=== PATIENT | female | born 1960 | race Caucasian/White ===

== ENCOUNTER 2022-08-12 21:34 | Emergency (ER) | payer OTHER ==
[2022-08-12] MEDS ORDERED: LORazepam 2 MG/ML VIAL ONE (22:06)
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
[2022-08-12 23:52] VITALS: TEMP 98
[2022-08-12 23:54] VITALS: BP 94/54; O2SAT 97
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
== END 2022-08-12 23:45 | disposition home or self-care (01) ==
LOC: ER 21:34
DX: M54.50 Low back pain, unspecified (principal); Y09 Assault by unspecified means
CPT/HCPCS: 70450; 72125; 72128; 72131

== ENCOUNTER 2024-06-22 22:10 | Emergency (ER) | payer MEDICAID, OTHER ==
--- OUTSIDE RECORDS SUMMARY | 2024-06-22 22:13 | XMS REPORT | Clinical Summary ---
Author Name Unknown Organization [facility] Address [address] [place] [address] Care Team Providers Care Dietary Clerk Name Role Phone Maria Elena Beasley NP, Kimberly Primary Care Provider [phone] Allergies No known active allergies Medications ibuprofen 200 mg cap Take 200 capsules by mouth daily. Active omeprazole (PriLOSEC) 20 mg capsule Take 1 capsule by mouth daily. Active simvastatin (ZOCOR) 40 mg tablet Take 40 mg by mouth daily. Active vitamin B complex capsule Take 1 capsule by mouth daily. Active ESTRADIOL ORAL Take 0.5 g by mouth daily. Active Active Problems Problem Noted Date Diagnosed Date Mastodynia of left breast 08/13/2020 Surgical History Surgery Date Site/Laterality Comments COLONOSCOPY 06/14/2014 - 06/13/2015 TOTAL ABDOMINAL HYSTERECTOMY CHOLECYSTECTOMY TONSILLECTOMY HAND SURGERY as a kid BREAST BIOPSY 06/14/2012 - 06/13/2013 Left Medical History Medical History Date Comments Hyperlipidemia 2011 Neuropathy 2009 Allergic rhinitis Child Diverticulitis 2003 Urinary incontinence 2014 Menopause 2014 Abnormal uterine bleeding unrelated to menstrual cycle 1986 Blood transfusion, without reported diagnosis 19 80 Depressive disorder 1976 Anxiety Child Suicide attempt 1996 Basal cell carcinoma of skin 2011 Mastodynia of left breast 08/13/2020 Family History Medical History Relation Name Comments Cervical cancer Daughter Dina Colon cancer Father Az Breast cancer Maternal Grandmother Rose Breast cancer Mother Mai Liver cancer Mother Mai Relation Name Status Comments Daughter Dina Father Az Maternal Grandmother Rose Mother Mai Social History Tobacco Use Types Packs/Day Years Used Date Smoking Tobacco: Former Cigarettes Smokeless Tobacco: Never Alcohol Use Standard Drinks/Week Comments Not Currently 0 (1 standard drink = 0.6 oz pur e alcohol) Comments No Sex and Gender Information Value Date Recorded Sex Assigned at Female 07/19/2020 8:40 AM 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 Legal Sex Female 5:59 AM 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 Gender Identity Female 07/19/2020 8:40 AM 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 Sexual Orientation Straight 07/19/2020 8: 40 AM 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 Obstetrics History Para Term AB IAB SAB Ectopic Multiple Livin g Live Births 4 4 Date Outcome GA Total Labor Labor/2nd/3rd Weight Sex Type Anes PTL Aneta A1 A5 Name Clin Para Para Para Para Comments Menarche: 11 Parity: 17 OBC: used for 15 years Hormonal Therapy: estradiol Last Pap: 1996 (OS) Abnormal Pap: none Last Eric: 07-15-2020 (OS) Last Colon: 2014 Breast Bx: (L) breast; 2012; benign Plan of Treatment Health Maintenance Due Date Last Done Comments COVID-19 Vaccine (2023-2 5 season) 2024 Influenza Vaccine (#1) 2024 Pneumococcal Vaccine: Pediat rics (0 to 5 Years) and At-Risk Patients (6 to 64 Years) Aged Out No longer eligi ble based on patient's age to complete this topic Insurance MEDICARE PART A AND B MEDICARE PART A AND B Care Teams Dietary Clerk Relationship Specialty Start Date End Date Kimberly Arredondo NP [address] [place] [address] [email or web address] PCP - General Cancer Prevention 08/06/20
[2024-06-22] MEDS ORDERED: ONDANSETRON 4 MG/2 ML VIAL ONE (22:36)
[2024-06-22] MEDS ORDERED: DICYCLOMINE HCL 20 MG/2 ML AMP IM ONE (22:36)
[2024-06-22] MEDS ORDERED: FAMOTIDINE 20 MG/2 ML VIAL IV ONE (22:38)
[2024-06-22] MEDS ORDERED: NA CHLORIDE 0.9% 1,000 ML ONE (22:38)
[2024-06-22] MEDS ORDERED: FENTANYL CITR 100 MCG/2 ML ONE (22:38)
[2024-06-22 22:50] LABS: Absolute Basophils 0.1 K/uL (0-0.5); Absolute Eosinophils 0.2 K/uL (0-0.5); Absolute Lymphocytes (CBC) 1.8 K/uL (0.7-4.9); Absolute Monocytes 0.7 K/uL (0.1-1.3); Absolute Neutrophil 3.9 K/uL (1.8-8.0); Basophils % 0.9 % (0-1.3); Eosinophils % 3.4 % (0-4.4); Hematocrit 30.3 % (36.0-45.0); Hemoglobin 10.4 g/dL (12.0-15.0); Lymphocytes % 27.7 % (15.3-44.8); MCH 32.9 pg (27.0-35.0); MCHC 34.3 g/dL (32.0-36.0); MCV 96.1 fL (80-100); MPV 9.4 fL (7.6-11.3); Platelets 174 thou/uL (152-406); RBC Red Blood Cell Count 3.15 M/uL (3.86-4.86); Red Cell Distribution Width 12.6 % (12.1-15.2)
[2024-06-22 23:03] LABS: ALT/SGPT 18 U/L (13-56); AST/SGOT 15 U/L (15-37); Albumin 2.8 g/dL (3.4-5.0); Albumin/Globulin Ratio 0.9 (1.1-1.8); Alkaline Phosphatase 42 U/L (45-117); Anion Gap 6.8 mEq/L (5.0-15.0); BUN Blood Urea Nitrogen 27 mg/dL (7-18); Bicarbonate 25 mEq/L (21-32); Bilirubin Total 0.2 mg/dL (0.2-1.0); Glomerular Filtration Rate 54 ml/min (=/>90); Glucose Level 92 mg/dL (74-106); Lipase 45 U/L (13-75); Potassium 3.8 mEq/L (3.5-5.1); Protein, Total 5.8 g/dL (6.4-8.2); Sodium Level 141 mEq/L (136-145)
[2024-06-22 23:32] LABS: C-Reactive Protein < 2.90 mg/L (<3.00)
[2024-06-23] MEDS ORDERED: TAMSULOSIN 0.4 MG SR CAP ONE (00:27)
[2024-06-23] MEDS ORDERED: NA CHLORIDE 0.9% 1,000 ML ONE (00:28)
[2024-06-23] MEDS ORDERED: FENTANYL CITR 100 MCG/2 ML ONE (00:28)
--- NOTE | 2024-06-23 01:33 | RAD REPORT ---
EXAM DESCRIPTION: Abdomen Pelvis W Contrast RadLex: CT ABDOMEN PELVIS WITH IV CONTRAST CLINICAL HISTORY: 64 years Female; ABD PAIN; IV ONLY Bed Name: 15 TECHNIQUE: CT of the abdomen and pelvis [with] intravenous contrast. All CT scans at this facility use dose modulation, iterative reconstruction, and/or weight based dosi ng when appropriate to reduce radiation dose to as low as reasonably achievable. COMPARISON: None. FINDINGS: Lower thorax: Bibasilar atelectasis. Abdomen: Stomach: Within normal limits Liver: No focal lesions. Enlarged. No intrahepatic ductal distention. Gallbladder: Surgically absent Pancreas: Within normal limits Spleen: Within normal limits Right kidney: Moderate hydronephrosis. 4 mm proximal ureteral stone. Left kidney: No hydronephrosis. No focal lesion. Adrenal glands: Within normal limits Vascular structures: Atherosclerosis of the abdomen and major branches. Nodes: No lymphadenopathy by size criteria Pelvis: Small bowel: No significant distention. Appendix: Within normal limits Colon: No distention or acute pericolonic edema. Colonic diverticulosis. Peritoneum: No free intraperitoneal fluid or air. Bones: No acute bone findings. Bladder: Unremarkable. Reproductive organs: No acute findings. IMPRESSION: 1. Moderate right-sided hydronephrosis with a 4 mm right proximal ureteral stone. 2. Colonic diverticulosis without diverticulitis. 3. Hepatomegaly. Electronically signed by: Manda Gibbons MD 06/23/2024 01:11 AM [facility] Z9 Due to temporary technical issues with the [employer] reporting system, reports are being anthony d by the in-house radiologist without review as a courtesy to ensure prompt reporting the interpreting radiologist is fully responsible for the content of the report. Transcribed Date/Time: 06/23/2024 1:33 AM
[2024-06-23 02:47] LABS: Specific Gravity > 1.030 (1.005-1.030); Sqamous Epithelial <5 /HPF (None Seen); Urine Bacteria None Seen /HPF (<20); Urine Bilirubin NEGATIVE (Negative); Urine Blood 3+ (OVER) (Negative); Urine Clarity Clear (Clear); Urine Color Light-Yellow (Yellow); Urine Culture Reflex Order NOT NEEDED; Urine Glucose NEGATIVE (Negative); Urine Ketones NEGATIVE (Negative); Urine Microscopic Reflex YN ORDER UMIC; Urine Mucus Slight /HPF (None Seen); Urine Nitrite NEGATIVE (Negative); Urine Protein NEGATIVE (Negative); Urine RBC >50 /HPF (None Seen); Urine Urobilinogen Normal (Normal); Urine WBC <5 /HPF (<5)
--- NOTE | 2024-06-23 04:35 | EDPHYS ---
Physician Documentation [facility] Name: Abeba Montez Age: 64 yrs Sex: Female : 1960 Arrival Date: 06/22/2024 Time: 22:10 Bed 15 Private MD: ED Physician Job Villasenor HPI: 06/22 22:13 This 64 yrs old Female presents to ER via Unassigned with complaints of Right sp4 abdominal pain acute . 06/23 06:02 64-year-old female presents with moderate abdominal pain on the right side.. sp4 Historical: - Allergies: 06/22 22:16 Morphine; kj2 - Immunization history:: Adult Immunizations unknown. - Infectious Disease History:: Denies. - Social history:: Smoking status: unknown. - Family history:: not pertinent. ROS: 06/23 06:02 Constitutional: Negative for fever, chills, and weight loss, positive for right sp4 abdominal pain and right flank pain All other systems are negative, Exam: 06:02 Constitutional: This is a well developed, well nourished patient who is awake, alert, sp4 and in no acute distress. Head/Face: Normocephalic, atraumatic. Eyes: Pupils equal round and reactive to light, extra-ocular motions intact. Lids and lashes normal. Conjunctiva and sclera are not injected. Cornea within normal limits. Periorbital areas with no swelling, redness, or edema. ENT: Nares patent. No nasal discharge, no septal abnormalities noted. Tympanic membranes are normal and external auditory canals are clear. Oropharynx with no redness, swelling, or masses, exudates, or evidence of obstruction, uvula midline. Mucous membranes moist. Neck: Trachea midline, no thyromegaly or masses palpated, and no cervical lymphadenopathy. Supple, full range of motion without nuchal rigidity, or vertebral point tenderness. Chest/axilla: Normal chest wall appearance and motion. Nontender with no deformity. No lesions are appreciated. Cardiovascular: Regular rate and rhythm with a normal S1 and S2. No gallops, murmurs, or rubs. Normal PMI, no JVD. No pulse deficits. Respiratory: Lungs have equal breath sounds bilaterally, clear to auscultation and percussion. No rales, rhonchi or wheezes noted. No increased work of breathing, no retractions or nasal flaring. Abdomen/GI: Soft, with normal bowel sounds. No distension or tympany. No guarding or rebound. No evidence of tenderness throughout. Back: No spinal tenderness. No costovertebral tenderness. Skin: Warm, dry with normal turgor. Normal color with no rashes, no lesions, and no evidence of cellulitis. MS/ Extremity: Pulses equal, no cyanosis. Neurovascular intact. Full, normal range of motion. Neuro: Awake and alert, GCS 15, oriented to person, place, time, and situation. Cranial nerves II-XII grossly intact. Motor strength 5/5 in all extremities. Sensory grossly intact. Psych: Awake, alert, with orientation to person, place and time. Behavior, mood, and affect are within normal limits Vital Signs: 06/22 22:14 Weight 75.3 kg; Height 5 ft. 1 in. ; Pain 7/10; kj2 22:15 BP 87 / 40; Pulse 60; Resp 18; kj2 23:31 BP 90 / 48; Pulse 64; Resp 18; Pulse Ox 97% on R/A; kj2 23:40 BP 95 / 58; Pulse 66; Resp 18; Pulse Ox 94% ; kj2 06/23 00:13 BP 79 / 45; Pulse 60; Resp 20; Temp 97.8; Pulse Ox 100% on R/A; kj2 01:15 BP 91 / 51; Pulse 61; Resp 18; Pulse Ox 94% ; kj2 02:15 BP 99 / 57; Pulse 60; Resp 20 S; Pulse Ox 97% ; kj2 03:31 BP 96 / 58; Pulse 58; Resp 18; Pulse Ox 100% on R/A; kj2 04:17 BP 90 / 68; Pulse 62; Resp 18; Pulse Ox 100% on R/A; kj2 06/22 22:14 Body Mass Index 31.37 (75.30 kg, 154.94 cm) kj2 06/22 22:14 Pain Scale: Adult kj2 Randell Coma Score: 06:02 Eye Response: spontaneous(4). Motor Response: obeys commands(6). Verbal Response: sp4 oriented(5). Total: 15. MDM: 06/22 22:13 Medical Screening Exam initiated sp4 06/23 06:02 Differential diagnosis: appendicitis, bowel obstruction, cholecystitis, Cholelithiasis, sp4 diverticulitis, gastritis. Data reviewed: vital signs, nurses notes, EMS record, old medical records, lab test result(s), radiologic studies, CT scan. Consideration of Admission/Observation Escalation of care including admission/observation considered. ED course: EXAM DESCRIPTION: Abdomen Pelvis W Contrast RadLex: CTABDOMEN PELVIS WITH IV CONTRAST CLINICAL HISTORY: 64 years Female; ABD PAIN; IV ONLYBed Name: 15 TECHNIQUE: CT of the abdomen and pelvis [with] intravenous contrast. All CT scans at this facility use dose modulation, iterative reconstruction, and/or weight based dosing when appropriate to reduce radiation dose to as low as reasonably achievable. COMPARISON: None. FINDINGS: Lower thorax: Bibasilar atelectasis. Abdomen: Stomach:Within normal limits Liver:No focal lesions. Enlarged. No intrahepatic ductal distention. Gallbladder:Surgically absent Pancreas:Within normal limits Spleen:Within normal limits Right kidney:Moderate hydronephrosis. 4 mm proximal ureteral stone. Left kidney:No hydronephrosis. No focal lesion. Adrenal glands:Within normal limits Vascular structures:Atherosclerosis of the abdomen and major branches. Nodes:No lymphadenopathy by size criteria Pelvis: Small bowel:No significant distention. Appendix:Within normal limits Colon:No distention or acute pericolonic edema. Colonic diverticulosis. Peritoneum: No free intraperitoneal fluid or air. Bones: No acute bone findings. Bladder: Unremarkable. Reproductive organs: No acute findings. IMPRESSION: 1. Moderate right-sided hydronephrosis with a 4 mm right proximal ureteral stone. 2. Colonic diverticulosis without diverticulitis. 3. Hepatomegaly. Electronically signed by: Manda Gibbons MD 06/23/2024 01:11 AM. ED course: Patient's pain has improved. Overall patient feeling much better. Stable for discharge home with follow-up with urology.. 06/22 22:12 Order name: CBC with Diff; Complete Time: 00:06 sp4 06/22 22:12 Order name: CMP; Complete Time: 00:06 sp4 06/22 22:12 Order name: Lipase; Complete Time: 00:06 sp4 06/22 22:12 Order name: Urinalysis w/ reflexes; Complete Time: 04:29 sp4 06/22 22:13 Order name: CRP; Complete Time: 00:06 sp4 06/22 22:12 Order name: CT Abd/Pelvis - IV Contrast Only sp4 06/22 22:12 Order name: IV Saline Lock; Complete Time: 22:53 sp4 06/22 22:12 Order name: Labs collected and sent; Complete Time: 22:53 sp4 Administered Medications: 06/22 22:52 Drug: fentaNYL (PF) IVP 50 mcg IVP once Route: IVP; Site: right antecubital; kj2 06/23 00:39 Follow up: Response: No adverse reaction 2 06/22 22:52 Drug: Dicyclomine IM 20 mg IM once Route: IM; Site: left gluteus; kj2 06/23 00:38 Follow up: Response: No adverse reaction 2 06/22 22:53 Drug: Famotidine IVP 20 mg IVP once; dilute with 10 mL 0.9% NaCl; give over 2 minutes kj2 Route: IVP; Site: right antecubital; 06/23 00:39 Follow up: Response: No adverse reaction 2 06/22 22:53 Drug: Ondansetron IVP 4 mg IVP once; over 2 minutes Route: IVP; Site: right antecubital;kj2 06/23 00:40 Follow up: Response: No adverse reaction 2 06/22 22:53 Drug: NS 0.9% IV 1000 ml IV at 1 bolus Per protocol; to be given as a bolus over 60 kj2 minutes Route: IV; Rate: 1 bolus; Site: right antecubital; 06/23 00:39 Follow up: IV Status: Completed infusion; IV Intake: 1000ml kj2 00:15 Drug: Flomax PO 0.8 mg PO once Route: PO; kj2 03:36 Follow up: Response: No adverse reaction kj2 00:38 Drug: fentaNYL (PF) IVP 50 mcg IVP once Route: IVP; Site: right antecubital; kj2 01:38 Follow up: Response: No adverse reaction kj2 00:38 Drug: NS 0.9% IV 1000 ml IV at 1000 ml once; to be given as a bolus over 60 minutes kj2 Route: IV; Rate: 1000 ml; Site: right antecubital; 01:38 Follow up: IV Status: Completed infusion; IV Intake: 1000ml kj2 Disposition Summary: 06/23/24 04:34 Discharge Ordered Notes: Location: Home sp4 Problem: new sp4 Symptoms: have improved sp4 Condition: Stable sp4 Diagnosis - Acute Right ureteral calculus , Right hydronephrosis sp4 Followup: sp4 - With: Mark Zaragoza MD - When: 7 - 10 days - Reason: Recheck today's complaints Discharge Instructions: - Discharge Summary Sheet sp4 - Kidney Stones, [id number] sp4 Forms: - Patient Portal Instructions sp4 Prescriptions: - Flomax 0.4 mg Oral capsule - take 1 capsule ORAL route daily for 30 days; 30 capsule; Refills: 0, Product sp4 Selection Permitted - ketorolac 10 mg Oral tablet - take 1 tablet ORAL route every 8 hours for 10 days as needed for pain; 30 sp4 tablet; Refills: 0, Product Selection Permitted - ondansetron 8 mg Oral Tablet,disintegrating - take 1 tablet ORAL route every 8 hours PRN nausea; 30 tablet; Refills: 0, sp4 Product Selection Permitted Signatures: Dispatcher [employer] Job Perkins MD MD sp4 Gloria Alanis RN RN kj2
--- NOTE | 2024-06-23 04:35 | ER ---
Nurse's Notes [facility] Name: Abeba Montez Age: 64 yrs Sex: Female : 1960 Arrival Date: 06/22/2024 Time: 22:10 Bed 15 Private MD: Diagnosis: Acute Right ureteral calculus , Right hydronephrosis Presentation: 06/22 22:14 Chief complaint: EMS states: right sided flank pain,, nausea. Coronavirus screen: kj2 Client denies travel out of the [place] in the last 14 days. Ebola Screen: No symptoms or risks identified at this time. Initial Sepsis Screen: Does the patient meet any 2 criteria? No. Patient's initial sepsis screen is negative. Does the patient have a suspected source of infection? No. Patient's initial sepsis screen is negative. Risk Assessment: Do you want to hurt yourself or someone else? Patient reports no desire to harm self or others. Onset of symptoms was June 22, 2024 at 22:16. 22:14 Method Of Arrival: EMS: [facility] kj2 22:14 Acuity: JEMMA 3 kj2 Triage Assessment: 22:17 General: Appears in no apparent distress. uncomfortable, Behavior is calm, cooperative. kj2 Pain: Complains of pain in right flank Pain currently is 7 out of 10 on a pain scale. EENT: No signs and/or symptoms were reported regarding the EENT system. Neuro: Level of Consciousness is awake, alert, obeys commands, Oriented to person, place, time, situation. Cardiovascular: Patient's skin is warm and dry. Respiratory: Airway is patent Respiratory effort is unlabored. GI: Reports nausea. : Reports pain flank(s), shayan color urine. Historical: - Allergies: 22:16 Morphine; kj2 - Immunization history:: Adult Immunizations unknown. - Infectious Disease History:: Denies. - Social history:: Smoking status: unknown. - Family history:: not pertinent. Screenin:20 [facility] ED Fall Risk Assessment (Adult) History of falling in the last 3 months, kj2 including since admission No falls in past 3 months (0 pts) Confusion or Disorientation No (0 pts) Intoxicated or Sedated No (0 pts) Impaired Gait No (0 pts) Mobility Assist Device Used No (0 pt) Altered Elimination No (0 pt) Score/Fall Risk Level 0 - 2 = Low Risk Maintained a safe environment, Hourly rounding (assess needs \T\ fall precautionary measures) done. Abuse screen: Denies threats or abuse. Denies injuries from another. Nutritional screening: No deficits noted. Tuberculosis screening: No symptoms or risk factors identified. Assessment: 22:19 General: see triage. kj2 23:20 Reassessment: Patient appears in no apparent distress at this time. Patient and/or kj2 family updated on plan of care and expected duration. Pain level reassessed. Patient is alert, oriented x 3, equal unlabored respirations, skin warm/dry/pink. 06/23 00:14 Reassessment: Patient appears in no apparent distress at this time. Patient and/or kj2 family updated on plan of care and expected duration. Pain level reassessed. Patient is alert, oriented x 3, equal unlabored respirations, skin warm/dry/pink. 01:15 Reassessment: Patient appears in no apparent distress at this time. Patient and/or kj2 family updated on plan of care and expected duration. Pain level reassessed. Patient is alert, oriented x 3, equal unlabored respirations, skin warm/dry/pink. 02:15 Reassessment: Patient appears in no apparent distress at this time. Patient and/or kj2 family updated on plan of care and expected duration. Pain level reassessed. Patient is alert, oriented x 3, equal unlabored respirations, skin warm/dry/pink. 03:31 Reassessment: Patient appears in no apparent distress at this time. Patient and/or kj2 family updated on plan of care and expected duration. Pain level reassessed. Patient is alert, oriented x 3, equal unlabored respirations, skin warm/dry/pink. 04:16 Reassessment: Patient appears in no apparent distress at this time. Patient and/or kj2 family updated on plan of care and expected duration. Pain level reassessed. Patient is alert, oriented x 3, equal unlabored respirations, skin warm/dry/pink. 04:39 Reassessment: Patient appears in no apparent distress at this time. Patient and/or kj2 family updated on plan of care and expected duration. Pain level reassessed. Patient is alert, oriented x 3, equal unlabored respirations, skin warm/dry/pink. Vital Signs: 06/22 22:14 Weight 75.3 kg; Height 5 ft. 1 in. ; Pain 7/10; kj2 22:15 BP 87 / 40; Pulse 60; Resp 18; kj2 23:31 BP 90 / 48; Pulse 64; Resp 18; Pulse Ox 97% on R/A; kj2 23:40 BP 95 / 58; Pulse 66; Resp 18; Pulse Ox 94% ; kj2 06/23 00:13 BP 79 / 45; Pulse 60; Resp 20; Temp 97.8; Pulse Ox 100% on R/A; kj2 01:15 BP 91 / 51; Pulse 61; Resp 18; Pulse Ox 94% ; kj2 02:15 BP 99 / 57; Pulse 60; Resp 20 S; Pulse Ox 97% ; kj2 03:31 BP 96 / 58; Pulse 58; Resp 18; Pulse Ox 100% on R/A; kj2 04:17 BP 90 / 68; Pulse 62; Resp 18; Pulse Ox 100% on R/A; kj2 06/22 22:14 Body Mass Index 31.37 (75.30 kg, 154.94 cm) kj2 06/22 22:14 Pain Scale: Adult kj2 Randell Coma Score: 06:02 Eye Response: spontaneous(4). Motor Response: obeys commands(6). Verbal Response: sp4 oriented(5). Total: 15. ED Course: 06/22 22:11 Patient arrived in ED. kmf 22:12 Job Villasenor MD is Attending Physician. sp4 22:14 Gloria Alanis RN is Primary Nurse. kj2 22:16 Triage completed. kj2 22:20 Patient has correct armband on for positive identification. Call light in reach. Child kj2 being held by parent. Provided Education on: call light. 22:50 Arm band placed on Patient placed in an exam room, on a stretcher. kj2 06/23 00:00 CT Abd/Pelvis - IV Contrast Only In Process Unspecified. EDMS 01:20 Assisted to bathroom. kj2 02:45 Urinalysis w/ reflexes Sent. kj2 03:32 No provider procedures requiring assistance completed. kj2 04:33 Mark Zaragoza MD is Referral Physician. sp4 04:41 IV discontinued, intact, bleeding controlled, No redness/swelling at site. Pressure kj2 dressing applied. Administered Medications: 06/22 22:52 Drug: fentaNYL (PF) IVP 50 mcg IVP once Route: IVP; Site: right antecubital; kj2 06/23 00:39 Follow up: Response: No adverse reaction kj2 06/22 22:52 Drug: Dicyclomine IM 20 mg IM once Route: IM; Site: left gluteus; kj2 06/23 00:38 Follow up: Response: No adverse reaction kj2 06/22 22:53 Drug: Famotidine IVP 20 mg IVP once; dilute with 10 mL 0.9% NaCl; give over 2 minutes kj2 Route: IVP; Site: right antecubital; 06/23 00:39 Follow up: Response: No adverse reaction kj2 06/22 22:53 Drug: Ondansetron IVP 4 mg IVP once; over 2 minutes Route: IVP; Site: right antecubital;kj2 06/23 00:40 Follow up: Response: No adverse reaction kj2 06/22 22:53 Drug: NS 0.9% IV 1000 ml IV at 1 bolus Per protocol; to be given as a bolus over 60 kj2 minutes Route: IV; Rate: 1 bolus; Site: right antecubital; 06/23 00:39 Follow up: IV Status: Completed infusion; IV Intake: 1000ml kj2 00:15 Drug: Flomax PO 0.8 mg PO once Route: PO; kj2 03:36 Follow up: Response: No adverse reaction kj2 00:38 Drug: fentaNYL (PF) IVP 50 mcg IVP once Route: IVP; Site: right antecubital; kj2 01:38 Follow up: Response: No adverse reaction kj2 00:38 Drug: NS 0.9% IV 1000 ml IV at 1000 ml once; to be given as a bolus over 60 minutes kj2 Route: IV; Rate: 1000 ml; Site: right antecubital; 01:38 Follow up: IV Status: Completed infusion; IV Intake: 1000ml kj2 Medication: 06/22 22:20 VIS not applicable for this client. kj2 Intake: 06/23 00:39 IV: 1000ml; Total: 1000ml. kj2 01:38 IV: 1000ml; Total: 2000ml. kj2 Outcome: 04:34 Discharge ordered by MD. lopez 04:40 Discharged to home ambulatory, with family, kj2 04:40 Condition: stable 04:40 Discharge instructions given to patient, Instructed on discharge instructions, follow kj2 up and referral plans. medication usage, Demonstrated understanding of instructions, follow-up care, medications, Prescriptions given X 3, 04:56 Patient left the ED. kj2 Signatures: Dispatcher [employer] EDJob Gregory MD MD sp4 Sofia Koroma Gloria Alanis, RN RN kj2
[2024-06-23 05:06] VITALS: TEMP 97.8
[2024-06-23 05:11] VITALS: O2SAT 100
[2024-06-23 05:13] VITALS: BP 90/68
== END 2024-06-23 04:56 | disposition home or self-care (01) ==
LOC: ER 22:10
DX: N13.2 Hydronephrosis with renal and ureteral calculous obstruction (principal)
CPT/HCPCS: 96361; 85025; 81001; 36415; 83690; 80053; 86140; 74177; 96375; 96372; 96374; 99284; Q9967; J0500; J3010 ×2; J2405; J7030 ×2

== ENCOUNTER 2024-10-29 11:24 | Emergency (ER) | payer MEDICAID ==
--- OUTSIDE RECORDS SUMMARY | 2024-10-29 11:27 | XMS REPORT | Clinical Summary ---
Author Name Unknown Organization [facility] Address [address] [place] [address] Care Team Providers Care Lining Vamper Name Role Phone Maria Elena Beasley NP, Kimberly Primary Care Provider [phone] Allergies No known active allergies Medications ibuprofen [...] Sex Assigned at Female 07/19/2020 8:40 AM [facility] Legal Sex Female 5:59 AM [facility] Gender Identity Female 07/19/2020 8:40 AM [facility] Sexual Orientation Straight 07/19/2020 8: 40 AM [facility] Obstetrics History Para Term AB IAB SAB [...] Health Maintenance Due Date Last Done Comments Pneumococcal Vaccine: 50+ Years (1 of - PCV) 010 COVID-19 Vaccine () 02/13/2024 Influenza Vaccine (Season Ended) 2025 Insurance MEDICARE PART A AND B MEDICARE PART A AND B Care Teams Lining Vamper Relationship Specialty Start Date End Date Kimberly Arredondo NP [address] [place] [id number] [email or web address] PCP - General Cancer Prevention 08/06/20
--- NOTE | 2024-10-29 12:18 | RAD REPORT ---
EXAM: Knee Right 2 View INDICATION: trauma COMPARISON: None FINDINGS: No acute fracture. No significant knee effusion. Mild medial and lateral compartment spurring. Other: N/A IMPRESSION: No acute osseous abnormality involving the imaged knee.
--- NOTE | 2024-10-29 12:21 | RAD REPORT ---
EXAMINATION: Elbow Left 3 View VIEWS: Three views CLINICAL INDICATION: Female, 64 years old. trauma COMPARISON: No prior exam. IMPRESSION: No acute fracture. No dislocation/malalignment or significant joint effusion.
--- NOTE | 2024-10-29 12:23 | RAD REPORT ---
EXAMINATION: C Spine Ap/Lat VIEWS: Three views CLINICAL INDICATION: Female, 64 years old. trauma COMPARISON: No prior exam. IMPRESSION: No acute fracture. Reversal of the normal cervical lordosis. Severe disc height loss is present at C4-5, C5-6, and C6-7. Moderate disc height loss at C3-4. Bridging and partially bridging osteophytes are present at these levels. No prevertebral edema. The odontoid view is unremarkable.
--- NOTE | 2024-10-29 12:36 | EDPHYS ---
Physician Documentation [facility] Name: Abeba Montez Age: 64 yrs Sex: Female : 1960 Arrival Date: 10/29/2024 Time: 11:24 Bed 7 Private MD: ED Physician Jamaal Avila HPI: 10/29 11:44 This 64 yrs old Female presents to ER via Unassigned with complaints of Fall Injury. sp3 11:44 64-year-old female with history of palpitations, cervical neck disease now presents to [facility] the ED with chief complaint injuries from a fall while walking her dog due to the dog pulling her down. She complains of left elbow pain, right knee pain and exacerbation of her neck symptoms. She denies head injury or loss of consciousness or pain in her chest, back, abdomen or other extremity is not listed above. ROS otherwise negative.. Historical: - Allergies: 11:29 Morphine; aa5 - Home Meds: 11:49 Wellbutrin Oral [Active]; Propranolol Oral [Active]; Ozempic subcutaneous [Active]; aa5 Omeprazole Oral [Active]; atorvastatin oral [Active]; "bladder medication" [Active]; - PMHx: 11:29 DM Type 2; Anxiety; Depressive disorder; "bladder issues"; acid reflux; Kidney stone; aa5 - PSHx: 11:29 hysterectomy; ; aa5 - Immunization history:: Adult Immunizations unknown. - Infectious Disease History:: Denies. - Social history:: Smoking status: Patient reports the use of cigarette tobacco products, denies chronic smoking, but will smoke occasionally. ROS: 11:45 Constitutional: Negative for fever, chills, and weight loss, Eyes: Negative for injury, sp3 pain, redness, and discharge, ENT: Negative for injury, pain, and discharge, Neck: Negative for injury, pain, and swelling, Cardiovascular: Negative for chest pain, palpitations, and edema, Respiratory: Negative for shortness of breath, cough, wheezing, and pleuritic chest pain, Abdomen/GI: Negative for abdominal pain, nausea, vomiting, diarrhea, and constipation, Back: Negative for injury and pain, Skin: Negative for injury, rash, and discoloration, Psych: Negative for depression, anxiety, suicide ideation, homicidal ideation, and hallucinations, Allergy/Immunology: Negative for hives, rash, and allergies, Endocrine: Negative for neck swelling, polydipsia, polyuria, polyphagia, and marked weight changes, Hematologic/Lymphatic: Negative for swollen nodes, abnormal bleeding, and unusual bruising, 11:45 All other systems are negative, Exam: 11:45 Constitutional: This is a well developed, well nourished patient who is awake, alert, sp3 and in no acute distress. Head/Face: Normocephalic, atraumatic. Eyes: Pupils equal round and reactive to light, extra-ocular motions intact. Lids and lashes normal. Conjunctiva and sclera are non-icteric and not injected. Cornea within normal limits. Periorbital areas with no swelling, redness, or edema. ENT: Nares patent. No nasal discharge, no septal abnormalities noted. External auditory canals are clear. Oropharynx with no redness, swelling, or masses, exudates, or evidence of obstruction, uvula midline. Mucous membranes moist. Chest/axilla: Normal chest wall appearance and motion. Nontender with no deformity. No lesions are appreciated. Cardiovascular: Regular rate and rhythm with a normal S1 and S2. No gallops, murmurs, or rubs. Normal PMI, no JVD. No pulse deficits. Respiratory: Lungs have equal breath sounds bilaterally, clear to auscultation and percussion. No rales, rhonchi or wheezes noted. No increased work of breathing, no retractions or nasal flaring. Abdomen/GI: Soft, non-tender, with normal bowel sounds. No distension or tympany. No guarding or rebound. No evidence of tenderness throughout. Back: No spinal tenderness. No costovertebral tenderness. Full range of motion. Skin: Warm, dry with normal turgor. Normal color with no rashes, no lesions, and no evidence of cellulitis. Neuro: Awake and alert, GCS 15, oriented to person, place, time, and situation. Cranial nerves II-XII grossly intact. Motor strength 5/5 in all extremities. Sensory grossly intact. Cerebellar exam normal. Normal gait. Psych: Awake, alert, with orientation to person, place and time. Behavior, mood, and affect are within normal limits. 11:45 Neck: Muscular pain on movement. No midline tenderness, pain on axial load, visible injury, neurological deficit, or any other abnormality noted., 11:45 Musculoskeletal/extremity: Left elbow swelling and abrasion noted. Right knee abrasion over the tibial tuberosity. Distal neurovascular exam normal in all 4 extremities.. Vital Signs: 11:29 BP 100 / 65; Pulse 63; Resp 18 S; Temp 97.5(TE); Pulse Ox 99% on R/A; Weight 73.48 kg aa5 (R); Height 5 ft. 1 in. (R); 12:45 BP 104 / 64; Pulse 62; Resp 16 S; Temp 97.2(TE); Pulse Ox 99% on R/A; aa5 11:29 Body Mass Index 30.61 (73.48 kg, 154.94 cm) aa5 MDM: 11:29 Medical Screening Exam initiated sp3 11:46 Data reviewed: vital signs, nurses notes, radiologic studies. ED course: 64-year-old sp3 female with multiple injuries from a fall. Will x-ray left elbow, right knee and neck. Patient received Tylenol and route. Disposition pending workup and patient course. Consider contusion versus fracture versus abrasion as differential.. 12:27 ED course: All x-rays negative. Will safely discharge patient home at this time.. sp3 10/29 11:30 Order name: C Spine Ap/Lat XRAY; Complete Time: 12:27 sp3 10/29 11:30 Order name: Elbow Left 3 View XRAY; Complete Time: 12:27 sp3 10/29 11:30 Order name: Knee Right 2 View XRAY; Complete Time: 12:27 sp3 10/29 12:46 Order name: Sling; Complete Time: 13:01 ll1 Administered Medications: No medications were administered Disposition Summary: 10/29/24 12:35 Discharge Ordered Notes: Location: Home sp3 Condition: Stable sp3 Diagnosis - Left elbow abrasion and contusion, right knee abrasion, cervical strain sp3 Followup: sp3 - With: Private Physician - When: Upon discharge from the Emergency Department - Reason: Continuance of care Discharge Instructions: - Discharge Summary Sheet sp3 - Abrasion sp3 - Cervical Sprain sp3 Forms: - Medication Reconciliation Form sp3 - Antibiotic Education sp3 - Prescription Opioid Use sp3 - Patient Portal Instructions sp3 - Leadership Thank You Letter sp3 Prescriptions: - Tramadol 50 mg Oral Tablet - take 1 tablet ORAL route every 8 hours as needed; 12 tablet; Refills: 0, sp3 Product Selection Permitted Signatures: Dispatcher [employer] Alma Arteaga, RN RN aa5 Francisca Reveles RN RN ll1 Jamaal Avila MD MD sp3
--- NOTE | 2024-10-29 12:36 | ER ---
Nurse's Notes [facility] Name: Abeba Montez Age: 64 yrs Sex: Female : 1960 Arrival Date: 10/29/2024 Time: 11:24 Bed 7 Private MD: Diagnosis: Left elbow abrasion and contusion, right knee abrasion, cervical strain Presentation: 10/29 11:29 Chief complaint: EMS states: Pt was walking dog and was dragged by leash, pt fell down. aa5 Abrasions noted to dennise palms and right knee. Negative LOC. EMS reports pt was ambulatory upon scene arrival. 11:29 Coronavirus screen: At this time, the client does not indicate any symptoms associated aa5 with coronavirus-19. Ebola Screen: Patient denies travel to an Ebola-affected area in the 21 days before illness onset. Initial Sepsis Screen: Does the patient meet any 2 criteria? No. Patient's initial sepsis screen is negative. Does the patient have a suspected source of infection? No. Patient's initial sepsis screen is negative. Risk Assessment: Do you want to hurt yourself or someone else? Patient reports no desire to harm self or others. Onset of symptoms was October 29, 2024. 11:29 Acuity: JEMMA 3 aa5 11:29 Method Of Arrival: EMS: [facility] aa5 11:29 Care prior to arrival: Medication(s) given: Tylenol, 1000 mg, IV initiated. 20 GA, in aa5 the right antecubital area. Historical: - Allergies: 11:29 Morphine; aa5 - Home Meds: 11:49 Wellbutrin Oral [Active]; Propranolol Oral [Active]; Ozempic subcutaneous [Active]; aa5 Omeprazole Oral [Active]; atorvastatin oral [Active]; "bladder medication" [Active]; - PMHx: 11:29 DM Type 2; Anxiety; Depressive disorder; "bladder issues"; acid reflux; Kidney stone; aa5 - PSHx: 11:29 hysterectomy; ; aa5 - Immunization history:: Adult Immunizations unknown. - Infectious Disease History:: Denies. - Social history:: Smoking status: Patient reports the use of cigarette tobacco products, denies chronic smoking, but will smoke occasionally. Screenin:[address] [facility] ED Fall Risk Assessment (Adult) History of falling in the last 3 months, aa5 including since admission Yes- single mechanical fall (1 pt) Confusion or Disorientation No (0 pts) Intoxicated or Sedated No (0 pts) Impaired Gait No (0 pts) Mobility Assist Device Used No (0 pt) Altered Elimination No (0 pt) Score/Fall Risk Level 0 - 2 = Low Risk Oriented to surroundings, Maintained a safe environment, Educated pt \\T\\ family on fall prevention, incl call for assistance when getting out of bed, Assessed \\T\\ reinforced patient's understanding of fall precautions. Abuse screen: Denies threats or abuse. Nutritional screening: No deficits noted. Tuberculosis screening: No symptoms or risk factors identified. Assessment: 11:30 General: Appears comfortable, Behavior is calm, cooperative. Pain: Complains of pain in aa5 dennise palms, right knee, left elbow, and neck. Quality of pain is described as burning, tender, Pain began post fall. Neuro: Level of Consciousness is awake, alert, obeys commands, Oriented to person, place, time, situation. Cardiovascular: Patient's skin is warm and dry. Respiratory: Airway is patent Respiratory effort is even, unlabored, Respiratory pattern is regular, symmetrical. GI: No signs and/or symptoms were reported involving the gastrointestinal system. : No signs and/or symptoms were reported regarding the genitourinary system. EENT: No signs and/or symptoms were reported regarding the EENT system. Derm: Skin is pink, warm \\T\\ dry. Abrasions noted to dennise palms and right knee, no bleeding noted. Musculoskeletal: Range of motion: intact in all extremities. 13:00 Reassessment: Patient is alert, oriented x 3, equal unlabored respirations, skin aa5 warm/dry/pink. Vital Signs: 11:29 BP 100 / 65; Pulse 63; Resp 18 S; Temp 97.5(TE); Pulse Ox 99% on R/A; Weight 73.48 kg aa5 (R); Height 5 ft. 1 in. (R); 12:45 BP 104 / 64; Pulse 62; Resp 16 S; Temp 97.2(TE); Pulse Ox 99% on R/A; aa5 11:29 Body Mass Index 30.61 (73.48 kg, 154.94 cm) aa5 ED Course: 11:28 Patient arrived in ED. aa5 11:29 Avila, Setul, MD is Attending Physician. sp3 11:29 Arm band placed on Patient placed in an exam room, on a stretcher. aa5 11:30 Patient has correct armband on for positive identification. Placed in gown. Bed in low aa5 position. Call light in reach. Side rails up X2. Pulse ox on. NIBP on. 11:31 Alma Shelton, RN is Primary Nurse. aa5 11:48 Triage completed. aa5 12:13 C Spine Ap/Lat XRAY In Process Unspecified. EDMS 12:13 Elbow Left 3 View XRAY In Process Unspecified. EDMS 12:13 Knee Right 2 View XRAY In Process Unspecified. EDMS 13:00 No provider procedures requiring assistance completed. IV discontinued, intact, aa5 bleeding controlled, No redness/swelling at site. Pressure dressing applied. 13:00 Sling applied to left arm. aa5 Administered Medications: No medications were administered Medication: 11:30 VIS not applicable for this client. aa5 Outcome: 12:35 Discharge ordered by . sp3 13:00 Discharged to home ambulatory, with family, aa5 13:00 Condition: stable 13:00 Discharge instructions given to patient, Instructed on discharge instructions, follow up and referral plans. medication usage, Demonstrated understanding of instructions, follow-up care, medications, Prescriptions given X 1, 13:01 Patient left the ED. ll1 Signatures: Dispatcher [employer] EDAZ Alma Shelton, RN AMRGOTH aa5 Francisca Reveles RN RN ll1 Jamaal Avila MD MD sp3
[2024-10-29 13:14] VITALS: BP 100/65; TEMP 97.5; O2SAT 99
== END 2024-10-29 13:01 | disposition home or self-care (01) ==
LOC: ER 11:24
DX: S16.1XXA Strain of muscle, fascia and tendon at neck level, initial encounter (principal); S80.211A Abrasion, right knee, initial encounter; S50.312A Abrasion of left elbow, initial encounter; W18.30XA Fall on same level, unspecified, initial encounter; F17.210 Nicotine dependence, cigarettes, uncomplicated
CPT/HCPCS: 72040; 99284

== ENCOUNTER 2024-11-01 14:59 | Emergency (ER) | payer MEDICAID ==
--- OUTSIDE RECORDS SUMMARY | 2024-11-01 15:08 | XMS REPORT | Clinical Summary ---
Author Name Unknown Organization [facility] Address [address] [place] [address] Care Team Providers Care Door Patcher Name Role Phone Maria Elena Beasley NP, Kimberly Primary Care Provider [phone] Allergies No known active allergies Medications ibuprofen [...] Sex Assigned at Female 07/19/2020 8:40 AM SALES HOST Legal Sex Female 5:59 AM SALES HOST Gender Identity Female 07/19/2020 8:40 AM SALES HOST Sexual Orientation Straight 07/19/2020 8: 40 AM SALES HOST Obstetrics History Para Term AB IAB SAB [...] MEDICARE PART A AND B Care Teams Door Patcher Relationship Specialty Start Date End Date Kimberly Arredondo NP [address] [place] [id number] [email or web address] PCP - General Cancer Prevention 08/06/20
[2024-11-01] MEDS ORDERED: ONDANSETRON 4 MG/2 ML VIAL ONE (15:51)
[2024-11-01] MEDS ORDERED: KETOROLAC 30 MG/ML INJ ONE (15:51)
[2024-11-01] MEDS ORDERED: NA CHLORIDE 0.9% 1,000 ML ONE (15:51)
[2024-11-01 16:13] LABS: Absolute Eosinophils 0.1 K/uL (0-0.5); Absolute Lymphocytes (CBC) 1.9 K/uL (0.7-4.9); Absolute Monocytes 0.7 K/uL (0.1-1.3); Absolute Neutrophil 5.3 K/uL (1.8-8.0); Basophils % 0.5 % (0-1.3); Eosinophils % 1.5 % (0-4.4); Hematocrit 33.9 % (36.0-45.0); Hemoglobin 11.7 g/dL (12.0-15.0); MCH 32.7 pg (27.0-35.0); MCHC 34.6 g/dL (32.0-36.0); MCV 94.5 fL (80-100); MPV 9.6 fL (7.6-11.3); Monocytes % 8.8 % (3.3-12.3); Neutrophils % 66.2 % (41.7-73.7); Nucleated Red Blood Cells % 0.1 % (0-0); Platelets 166 thou/uL (152-406); RBC Red Blood Cell Count 3.58 M/uL (3.86-4.86); Red Cell Distribution Width 12.5 % (12.1-15.2)
[2024-11-01 16:16] LABS: Specific Gravity 1.012 (1.005-1.030); Sqamous Epithelial <5 /HPF (None Seen); Urine Bacteria <20 /HPF (<20); Urine Bilirubin NEGATIVE (Negative); Urine Blood 3+ (OVER) (Negative); Urine Clarity Extremely Turbid (Clear); Urine Color Brown (Yellow); Urine Crystals Unidentified Few /HPF (None Seen); Urine Culture Reflex Order REFLEXED; Urine Glucose NEGATIVE (Negative); Urine Ketones NEGATIVE (Negative); Urine Microscopic Reflex YN ORDER UMIC; Urine Mucus 1+ /HPF (None Seen); Urine Nitrite NEGATIVE (Negative); Urine Protein 1+ (Negative); Urine RBC >50 /HPF (None Seen); Urine Urobilinogen Normal (Normal); Urine WBC >50 /HPF (<5); Urine Yeast (Budding) Trace /HPF (None Seen)
[2024-11-01 16:29] LABS: Albumin 3.5 g/dL (3.4-5.0); Albumin/Globulin Ratio 0.9 (1.1-1.8); Anion Gap 6.8 mEq/L (5.0-15.0); Bilirubin Total 0.6 mg/dL (0.2-1.0); Globulin 3.8 g/dL (2.3-3.5); Potassium 3.8 mEq/L (3.5-5.1); Protein, Total 7.3 g/dL (6.4-8.2)
--- NOTE | 2024-11-01 17:17 | RAD REPORT ---
EXAMINATION: Abdomen Pelvis W Contrast CLINICAL INDICATION: Female, 64 years old.Flank pain;Hematuria TECHNIQUE: CT abdomen and pelvis was performed, after the administration of IV contrast, as per [facility] protocol. Axial, sagittal and coronal reconstructions were obtained. One or more of the following dose reduction techniques were used: Automated exposure control, adjustment of the mA and/o r kV according to patient size, and/or iterative reconstruction. Unless otherwise specified, incidental findings do not require dedicated imaging follow-up. [id number]. COMPARISON: 06/23/2024 FINDINGS: LOWER CHEST: No acute process identified.No significant pericardial effusion. Mild circumferential th ickening of the distal esophagus which could reflect esophagitis. UPPER GI: No significant abnormality. LIVER: No significant focal abnormality. GALLBLADDER/BILE DUCTS: Cholecystectomy. Mild extra-hepatic biliary ductal dilatation is likely relat ed to the post-cholecystectomy state. Consider correlating with LFT's.? PANCREAS: No mass, ductal dilation, or walter-pancreatic fluid. SPLEEN: Unremarkable. ADRENALS: No adrenal masses. KIDNEYS AND URETERS: Moderate right-sided hydroureteronephrosis.4 mm stone in the right mid to distal ureter. ABDOMINAL AORTA AND OTHER VESSELS: Moderate atherosclerotic changes without aortic aneurysm. PERITONEUM: No abnormal free fluid. No free air. LYMPH NODES: No pathologic lymphadenopathy. ABDOMINAL WALL: Unremarkable SMALL BOWEL/COLON: Small bowel has normal course and caliber. No colonic wall thickening or pericolon ic inflammatory changes.Nonvisualized appendix but no secondary signs of acute appendicitis. URINARY BLADDER: Nonspecific circumferential bladder wall thickening. REPRODUCTIVE ORGANS: Uterus surgically absent. No adnexal abnormality. MUSCULOSKELETAL: Multilevel degenerative changes in the spine. No acute fracture. ADDITIONAL FINDINGS: None. IMPRESSION: Moderate right-sided hydroureteronephrosis secondary to a 4 mm stone in the right mid to distal urete r. Assuming the same stone, it has moved downstream from the proximal ureter on the prior CT from 06/23/2024.
[2024-11-01] MEDS ORDERED: CEFTRIAXONE 1000 MG/VIAL ONE (17:23)
--- NOTE | 2024-11-01 17:56 | EDPHYS ---
Physician Documentation [facility] Name: Abeba Weir Age: 64 yrs Sex: Female : 1960 Arrival Date: 11/01/2024 Time: 14:59 Bed 7 Private MD: ED Physician Jamaal Avila HPI: 11/01 17:48 This 64 yrs old Female presents to ER via Ambulatory with complaints of Flank Pain, sp3 Blood In Urine. 17:48 Six 64-year-old female with history of prior kidney stone, diabetes, anxiety, now sp3 presents to the ED for chief complaint right-sided flank pain and gross visualized hematuria. Patient is concerned about kidney stone. She denies any fever, vomiting, diarrhea, left-sided pain, chest pain, shortness of breath, bleeding anywhere else, or any other signs or symptoms on ROS at this time.. Historical: - Allergies: 15:11 Morphine; hb - PMHx: 15:11 acid reflux; Anxiety; depressive disorder; DM type 2; Kidney stone; hb - PSHx: 15:11 ; hysterectomy; hb - Immunization history:: Adult Immunizations up to date. - Infectious Disease History:: Denies. - Social history:: Smoking status: Patient reports the use of cigarette tobacco products. ROS: 17:50 Constitutional: Negative for fever, chills, and weight loss, Eyes: Negative for injury, sp3 pain, redness, and discharge, Neck: Negative for injury, pain, and swelling, Cardiovascular: Negative for chest pain, palpitations, and edema, Respiratory: Negative for shortness of breath, cough, wheezing, and pleuritic chest pain, Back: Negative for injury and pain, MS/Extremity: Negative for injury and deformity, Skin: Negative for injury, rash, and discoloration, Neuro: Negative for headache, weakness, numbness, tingling, and seizure, Psych: Negative for depression, anxiety, suicide ideation, homicidal ideation, and hallucinations, Allergy/Immunology: Negative for hives, rash, and allergies, Endocrine: Negative for neck swelling, polydipsia, polyuria, polyphagia, and marked weight changes, Hematologic/Lymphatic: Negative for swollen nodes, abnormal bleeding, and unusual bruising, 17:50 All other systems are negative, Exam: 17:51 Constitutional: This is a well developed, well nourished patient who is awake, alert, sp3 and in no acute distress. Head/Face: Normocephalic, atraumatic. ENT: Nares patent. No nasal discharge, no septal abnormalities noted. External auditory canals are clear. Oropharynx with no redness, swelling, or masses, exudates, or evidence of obstruction, uvula midline. Mucous membranes moist. Neck: Trachea midline, no thyromegaly or masses palpated, and no cervical lymphadenopathy. Supple, full range of motion without nuchal rigidity, or vertebral point tenderness. No Meningismus. Chest/axilla: Normal chest wall appearance and motion. Nontender with no deformity. No lesions are appreciated. Cardiovascular: Regular rate and rhythm with a normal S1 and S2. No gallops, murmurs, or rubs. Normal PMI, no JVD. No pulse deficits. Respiratory: Lungs have equal breath sounds bilaterally, clear to auscultation and percussion. No rales, rhonchi or wheezes noted. No increased work of breathing, no retractions or nasal flaring. Skin: Warm, dry with normal turgor. Normal color with no rashes, no lesions, and no evidence of cellulitis. MS/ Extremity: Pulses equal, no cyanosis. Neurovascular intact. Full, normal range of motion. Neuro: Awake and alert, GCS 15, oriented to person, place, time, and situation. Cranial nerves II-XII grossly intact. Motor strength 5/5 in all extremities. Sensory grossly intact. Cerebellar exam normal. Normal gait. 17:51 Abdomen/GI: Right-sided pain to palpation and right CVA tenderness. Urine visualized to be grossly bloody., Vital Signs: 15:09 BP 104 / 64; Pulse 17; Resp 16; Temp 97.9; Pulse Ox 99% ; Weight 73.48 kg; Height 5 ft. hb 1 in. ; Pain 7/10; 15:56 Pain 8/10; ld1 15:58 Pulse 67; Resp 18; Pulse Ox 100% on R/A; ld1 16:18 BP 101 / 88; Pulse 66; Resp 18; Pulse Ox 100% on R/A; ld1 18:22 BP 118 / 78; Pulse 71; Resp 18; Pulse Ox 100% on R/A; ld1 15:09 Body Mass Index 30.61 (73.48 kg, 154.94 cm) hb 15:09 Pain Scale: Adult hb 15:56 Pain Scale: Adult ld1 MDM: 15:10 Medical Screening Exam initiated sp3 17:53 Data reviewed: vital signs, old medical records, lab test result(s), radiologic sp3 studies. ED course: 64-year-old female with right flank pain. Differential diagnosis includes UTI/pyelonephritis Bactrim, kidney stone/ureterolithiasis spectrum, other intra-abdominal pathology. I am not highly suspicious of [employer] or vascular pathology. Workup has included CT scan of the abdomen pelvis, UA and general labs. Patient feels significantly better after IV fluids and ketorolac IV. Patient wanted not to have narcotics secondary to prior pain medicine use. UA demonstrates WBCs and RBCs but no bacteria. Patient does not appear clinically septic with normal vital signs, heart rate and WBC count and is afebrile. Rocephin given IV x 1 as precautionary measure. Prior creatinine 1.2 and today 1.6. I offered transfer to [facility] but patient does not want to go to [place] at this time. Plan is to discharge her and she will call [employer] and try and schedule outpatient urology appointment. I advised her that if she cannot get this done to come back here or if she gets worse in any way including fever worsening pain or any concerns to return here as well. She acknowledged and we will safely discharge her home at this time. Discharge medications will include antibiotic, diclofenac (though I did warn her regarding the creatinine) and tramadol. I had a extensive conversation with her regarding narcotic use and she is okay using a mild narcotic as she states that she is "not under the same stress that she was long ago".. 11/01 15:10 Order name: CBC with Diff; Complete Time: 17:11 sp3 11/01 15:10 Order name: CMP; Complete Time: 17:11 sp3 11/01 15:10 Order name: Lipase; Complete Time: 17:11 sp3 11/01 15:10 Order name: UA Rfx Simone Cult if indicated; Complete Time: 17:11 sp3 11/01 16:20 Order name: Urine Culture EDGA 11/01 17:12 Order name: Blood Culture Adult (2) sp3 11/01 15:10 Order name: CT Abd/Pelvis - IV Contrast Only; Complete Time: 17:39 sp3 11/01 15:10 Order name: IV Saline Lock; Complete Time: 16:01 sp3 11/01 15:10 Order name: Labs collected and sent; Complete Time: 16:01 sp3 Administered Medications: 16:01 Drug: NS 0.9% IV 1000 ml IV at 1 bolus Per protocol; to be given as a bolus over 60 ld1 minutes Route: IV; Rate: 1 bolus; Site: right antecubital; 18:24 Follow up: Response: No adverse reaction; IV Status: Completed infusion; IV Intake: ld1 1000ml 16:02 Drug: Ondansetron IVP 4 mg IVP once; over 2 minutes Route: IVP; Site: right antecubital;ld1 18:24 Follow up: Response: No adverse reaction ld1 16:02 Not Given (Patient Refused): morphineor iv 4 mg IVP once over 4 mins ld1 16:02 Drug: Ketorolac IVP 15 mg IVP once Route: IVP; Site: right antecubital; ld1 18:23 Follow up: Response: No adverse reaction ld1 18:15 Drug: Rocephin IV 1 grams IV at calculated rate once; Given slow IV push per pharmacy ld1 instructions Route: IV; Rate: calculated rate; Site: left antecubital; 18:23 Follow up: Response: No adverse reaction; IV Status: Completed infusion ld1 Disposition Summary: 11/01/24 17:56 Discharge Ordered Notes: Location: Home sp3 Condition: Stable sp3 Diagnosis - Kidney stone, ureterolithiasis, right flank pain sp3 Followup: sp3 - With: Private Physician - When: Upon discharge from the Emergency Department - Reason: Continuance of care Discharge Instructions: - Discharge Summary Sheet sp3 - Kidney Stones sp3 Forms: - Medication Reconciliation Form sp3 - Antibiotic Education sp3 - Prescription Opioid Use sp3 - Patient Portal Instructions sp3 - Leadership Thank You Letter sp3 Prescriptions: - Diclofenac Sodium 75 mg Oral Tablet Sustained Release - take 1 tablet ORAL route 2 times per day; 30 tablet; Refills: 0, Product sp3 Selection Permitted - Tramadol 50 mg Oral Tablet - take 1 tablet ORAL route every 8 hours as needed; 12 tablet; Refills: 0, sp3 Product Selection Permitted - Bactrim DS 800-160 mg Oral Tablet - take 1 tablet ORAL route every 12 hours for 7 days; 14 tablet; Refills: 0, sp3 Product Selection Permitted Signatures: Dispatcher [employer] EDMS Phoebe Karimi RN RN Nneka Vital RN RN ld1 Jamaal Avila MD MD sp3 Corrections: (The following items were deleted from the chart) 15: 15:11 CBC+H.LAB.BRZ ordered. EDMS EDMS 15:11 15:11 COMPREHENSIVE METABOLIC PANEL+C.LAB.BRZ ordered. EDMS EDMS 15: 15:11 LIPASE+C.LAB.BRZ ordered. EDMS EDMS 15: 15:11 UA Rfx Simone Cult if indicated+U.LAB.BRZ ordered. EDMS EDMS 15:11 15:11 Abdomen Pelvis W Con+CT.RAD.BRZ ordered. EDMS EDMS 17:12 17:12 BLOOD CULTURE*+BA.LAB.BRZ ordered. EDMS EDMS
--- NOTE | 2024-11-01 17:56 | ER ---
Nurse's Notes [facility] Name: Abeba Weir Age: 64 yrs Sex: Female : 1960 Arrival Date: 11/01/2024 Time: 14:59 Bed 7 Private MD: Diagnosis: Kidney stone, ureterolithiasis, right flank pain Presentation: 11/01 15:07 Chief complaint: Blood in urine and right flank pain since this morning. hb 15:08 Coronavirus screen: At this time, the client does not indicate any symptoms associated hb with coronavirus-19. Ebola Screen: No symptoms or risks identified at this time. 15:08 Method Of Arrival: Ambulatory hb 15:09 Initial Sepsis Screen: Does the patient meet any 2 criteria? No. Patient's initial hb sepsis screen is negative. Does the patient have a suspected source of infection? No. Patient's initial sepsis screen is negative. Risk Assessment: Do you want to hurt yourself or someone else? Patient reports no desire to harm self or others. 15:09 Acuity: JEMMA 3 hb Historical: - Allergies: 15:11 Morphine; hb - PMHx: 15:11 acid reflux; Anxiety; depressive disorder; DM type 2; Kidney stone; hb - PSHx: 15:11 ; hysterectomy; hb - Immunization history:: Adult Immunizations up to date. - Infectious Disease History:: Denies. - Social history:: Smoking status: Patient reports the use of cigarette tobacco products. Screenin:56 [facility] ED Fall Risk Assessment (Adult) History of falling in the last 3 months, ld1 including since admission No falls in past 3 months (0 pts) Confusion or Disorientation No (0 pts) Intoxicated or Sedated No (0 pts) Impaired Gait No (0 pts) Mobility Assist Device Used No (0 pt) Altered Elimination No (0 pt) Score/Fall Risk Level 0 - 2 = Low Risk Oriented to surroundings, Hourly rounding (assess needs \T\ fall precautionary measures) done. Abuse screen: Denies threats or abuse. Denies injuries from another. Nutritional screening: No deficits noted. Tuberculosis screening: No symptoms or risk factors identified. Assessment: 15:56 General: Appears in no apparent distress. uncomfortable, Behavior is calm, cooperative, ld1 appropriate for age. Pain: Complains of pain in right lower quadrant Pain radiates to right low back Pain currently is 8 out of 10 on a pain scale. Quality of pain is described as throbbing, Pain began 1 day ago. Is intermittent. Neuro: Level of Consciousness is awake, alert, obeys commands, Oriented to person, place, time, situation. Cardiovascular: Capillary refill < 3 seconds Patient's skin is warm and dry. Rhythm is sinus rhythm. Respiratory: Airway is patent Respiratory effort is even, unlabored. GI: Abdomen is round non-distended. : Urine is blood tinged, Reports pain in right flank(s), vaginal bleeding that is with clots. EENT: No signs and/or symptoms were reported regarding the EENT system. Derm: No signs and/or symptoms reported regarding the dermatologic system. Musculoskeletal: No signs and/or symptoms reported regarding the musculoskeletal system. 16:18 Reassessment: Patient appears in no apparent distress at this time. No changes from ld1 previously documented assessment. Patient and/or family updated on plan of care and expected duration. Pain level reassessed. 18:22 Reassessment: Patient appears in no apparent distress at this time. No changes from ld1 previously documented assessment. Patient and/or family updated on plan of care and expected duration. Pain level reassessed. Patient is alert, oriented x 3, equal unlabored respirations, skin warm/dry/pink. Vital Signs: 15:09 BP 104 / 64; Pulse 17; Resp 16; Temp 97.9; Pulse Ox 99% ; Weight 73.48 kg; Height 5 ft. hb 1 in. ; Pain 7/10; 15:56 Pain 8/10; ld1 15:58 Pulse 67; Resp 18; Pulse Ox 100% on R/A; ld1 16:18 BP 101 / 88; Pulse 66; Resp 18; Pulse Ox 100% on R/A; ld1 18:22 BP 118 / 78; Pulse 71; Resp 18; Pulse Ox 100% on R/A; ld1 15:09 Body Mass Index 30.61 (73.48 kg, 154.94 cm) hb 15:09 Pain Scale: Adult hb 15:56 Pain Scale: Adult ld1 ED Course: 15:02 Patient arrived in ED. mr 15:10 Jamaal Avila MD is Attending Physician. sp3 15:11 Triage completed. hb 15:12 Arm band placed on. hb 15:48 Nneka Vital, RN is Primary Nurse. ld1 15:56 Patient has correct armband on for positive identification. Placed in gown. Bed in low ld1 position. Call light in reach. Side rails up X2. Pulse ox on. NIBP on. Door closed. Noise minimized. Warm blanket given. 15:56 No provider procedures requiring assistance completed. ld1 16:01 UA Rfx Simone Cult if indicated Sent. ld1 16:50 CT Abd/Pelvis - IV Contrast Only In Process Unspecified. EDMS 18:14 Inserted saline lock: 20 gauge in left antecubital area, using aseptic technique. Blood ld1 collected. Flushed with 10 mL NS. 18:23 IV discontinued, intact, bleeding controlled, No redness/swelling at site. ld1 Administered Medications: 16:01 Drug: NS 0.9% IV 1000 ml IV at 1 bolus Per protocol; to be given as a bolus over 60 ld1 minutes Route: IV; Rate: 1 bolus; Site: right antecubital; 18:24 Follow up: Response: No adverse reaction; IV Status: Completed infusion; IV Intake: ld1 1000ml 16:02 Drug: Ondansetron IVP 4 mg IVP once; over 2 minutes Route: IVP; Site: right antecubital;ld1 18:24 Follow up: Response: No adverse reaction ld1 16:02 Not Given (Patient Refused): morphineor iv 4 mg IVP once over 4 mins ld1 16:02 Drug: Ketorolac IVP 15 mg IVP once Route: IVP; Site: right antecubital; ld1 18:23 Follow up: Response: No adverse reaction ld1 18:15 Drug: Rocephin IV 1 grams IV at calculated rate once; Given slow IV push per pharmacy ld1 instructions Route: IV; Rate: calculated rate; Site: left antecubital; 18:23 Follow up: Response: No adverse reaction; IV Status: Completed infusion ld1 Medication: 15:56 VIS not applicable for this client. ld1 Intake: 18:24 IV: 1000ml; Total: 1000ml. ld1 Outcome: 17:56 Discharge ordered by MD. alberts 18:23 Discharged to home ambulatory, ld1 18:23 Condition: stable 18:23 Discharge instructions given to patient, Instructed on discharge instructions, follow up and referral plans. medication usage, Demonstrated understanding of instructions, follow-up care, medications, Prescriptions given X 3, 18:24 Patient left the ED. ld1 Signatures: Dispatcher [employer] KATERIN IrizarryRose, Sal Huang mr Phoebe Karimi, RN RN Nneka Vital RN RN ld1 Jamaal Avila MD MD sp3 Corrections: (The following items were deleted from the chart) 15:08 15:07 Chief complaint: Bright red vaginal bleeding that started this morning. hb hb
[2024-11-01 18:37] VITALS: TEMP 97.9
[2024-11-01 18:51] VITALS: O2SAT 100
[2024-11-01 18:53] VITALS: BP 118/78
== END 2024-11-01 18:24 | disposition home or self-care (01) ==
LOC: ER 14:59
DX: N20.0 Calculus of kidney (principal); N20.1 Calculus of ureter; Z87.442 Personal history of urinary calculi; Z72.0 Tobacco use
CPT/HCPCS: 87040 ×2; 87088; 85025; 81001; 87086; 36415; 83690; 80053; 74177; Q9967; J2405; J7030; J0696

== ENCOUNTER 2025-03-19 19:19 | Emergency (ER) | payer MEDICAID ==
--- OUTSIDE RECORDS SUMMARY | 2025-03-19 19:22 | XMS REPORT | Clinical Summary ---
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
[2025-03-19] MEDS ORDERED: HYDROCODONE/APAP 7.5/325 MG TAB ONE (19:40)
[2025-03-19] MEDS ORDERED: TDAP (DIPHTH,PERTUSS(ACELL),TET VAC) 0.5 ML VIAL IMVAC ONE (19:41)
[2025-03-19 20:18] VITALS: TEMP 98.2
[2025-03-19 20:20] VITALS: BP 123/89; O2SAT 98
== END 2025-03-19 20:05 | disposition home or self-care (01) ==
LOC: ER 19:19
DX: T23.202A Burn of second degree of left hand, unspecified site, initial encounter (principal); X12.XXXA Contact with other hot fluids, initial encounter; Y93.89 Activity, other specified; Y92.010 Kitchen of single-family (private) house as the place of occurrence of the external cause; F17.210 Nicotine dependence, cigarettes, uncomplicated; F41.9 Anxiety disorder, unspecified; E11.9 Type 2 diabetes mellitus without complications; F32.A Depression, unspecified; K21.9 Gastro-esophageal reflux disease without esophagitis; Z23 Encounter for immunization
CPT/HCPCS: 90715; 96372; 99284